=== PATIENT | female | born 1935 | race African-American/Black ===

== ENCOUNTER → 2017-03-06 | Outpatient (CLI) | payer MEDICARE ==
[~2017-03-06] MED LIST: ALENDRONATE SOD70 MG PO; ASPIRIN81 M2 PO; CALTRATE 600+D PO
--- NOTE | ~2017-03-06 | MY24 ---
[facility] A Service of [facility] RADIOLOGY TEXT RESULTS PATIENT: ERIKAJANUARY LOCATION: [facility] : 31 UNIT #: [id number] AGE: [address]: Lc Mendoza Jr, MD SEX: F ORDER DR: [id number] [facility]. [place], [place] [address] [id number] O MR#: [id number] Acc #: [id number] NAME: ERIKA NATE : 1935 SEX: F STUDY DATE/TIME: 03/06/2017 9:36 UNIT: [facility] ROOM: STUDY DESCRIPTION: MAX BAR REBECCA W/ CAD UNI LT Attending Physician: Lc Mendoza Jr., M.D. Referring Physician: Lc Mendoza Jr., M.D. Ordering Physician: Staff Doctor Not On Primary Care Physician: Lc Mendoza Jr., M.D. MEDICAL IMAGING REPORT This report is preliminary unless electronic signature is present EXAM Left digital diagnostic mammogram with CAD. COMPARISON March 01, 2016, February 28, 2015, surgical specimen, February 17, 2012, February 14, 2011, February 04, 2010, January 30, 2009, November 30, 2007, and November 04, 2006. INDICATIONS Breast cancer screening. History of right mastectomy for breast cancer. 81-year-old female who denies current complaints. FINDINGS There are scattered fibroglandular densities in the left breast. There are no suspicious findings in the left breast. IMPRESSION 1. Post right mastectomy for breast cancer. 2. No mammographic evidence of malignancy in the left breast. Continued annual mammography and clinical breast exam are recommend for as long as the patient is in good health ([employer]). Findings were discussed with the patient upon termination of today's exam. Patients over the age of 40 are entered into a reminder system with target due date for the next mammogram. A result letter will also be sent to the patient. BIRADS: 2 Benign findings. Dictated by... Jayant Shields M.D. THIS IS AN ELECTRONICALLY VERIFIED REPORT [facility] A Service of [facility] RADIOLOGY TEXT RESULTS PATIENT: ERIKA LOCATION: [facility] : 31 UNIT #: [id number] AGE: [address]: Lc Mendoza Jr, MD SEX: F ORDER DR: Jayant Shields M.D. at 03/09/2017 10:22 PM DANIEL/delphine TD: 03/06/2017 15:27 JOB #: [id number] MEDICAL IMAGING REPORT Page 1 of 1 COPY
== END | disposition home or self-care (01) ==
LOC: CMAM 09:12
DX: Z08 Encounter for follow-up examination after completed treatment for malignant neoplasm (principal); Z85.3 Personal history of malignant neoplasm of breast; Z90.11 Acquired absence of right breast and nipple
CPT/HCPCS: G0206